=== PATIENT | female | born 1955 | race Caucasian/White ===

== ENCOUNTER 2022-03-06 19:40 | Emergency (ER) | payer OTHER, MEDICARE, SELFPAY ==
--- NOTE | ~2022-03-06 | CT_ITS ---
EXAMINATION: CT facial & cervical spine wo DATE: 03/06/2022 20:21 INDICATION: glf burising to the nose and upper jaw TECHNIQUE: Computed tomography (CT) of the maxillofacial region and cervical spine was performed with out intravenous contrast. Automated exposure control and iterative reconstruction technique were empl oyed. The dose-length product was 271.80 mGy-cm. COMPARISON: 07/11/2019. FINDINGS: CERVICAL: Counting reference: Craniocervical junction. There are seven cervical type vertebral bodies.. Anatomic Variants: None.. Vertebral Body Alignment: Intact. Craniocervical junction: Moderate degenerative change. Alignment intact. Osseous structures/fracture: No evidence of a lytic or blastic process in the visualized spine. N o evidence of acute fracture. Cervical soft tissues: The paraspinal soft tissues planes are maintained. Right thyroid gland enla rgement. Coarse right thyroid calcifications. Degenerative changes: Multilevel degenerative disc and facet change, with multilevel severe neural fo raminal narrowing. FACE: Soft Tissues: No significant superficial soft tissue swelling. Facial bones: No acute fracture. No lytic or blastic process. Eyes: The globes are intact. The soft tissue planes of the orbits are maintained. Paranasal Sinuses: The visualized aerated spaces are clear. Foreign Bodies: No radiopaque foreign bodies. Other Findings: Periodontal disease. IMPRESSION: No acute fracture or traumatic malalignment in the cervical spine. No acute facial bone fracture. Enl arged, calcified right thyroid gland, recommend nonemergent outpatient thyroid ultrasound for further evaluation. Reviewed, dictated and finalized at location K. IMPRESSION: No acute fracture or traumatic malalignment in the cervical spine. No acute fac ial bone fracture. Enlarged, calcified right thyroid gland, recommend nonemerge nt outpatient thyroid ultrasound for further evaluation.
--- NOTE | ~2022-03-06 | CT_ITS ---
EXAMINATION: CT brain wo con DATE: 03/06/2022 20:21 INDICATION: glf TECHNIQUE: Computed tomography (CT) of the head was performed without intravenous contrast. The mA wa s adjusted according to patient size. Iterative reconstruction technique was employed. The dose-lengt h product was 605.33 mGy-cm. COMPARISON: None FINDINGS: No acute intracranial hemorrhage or extra-axial fluid collection. No hydrocephalus, mass, or herniation. No acute ischemic infarct. Unremarkable dural venous sinus attenuation. No acute osseous abnormality. The aerated spaces are clear. Mild atrophy. Severe chronic white matter change. Old lacunar infarcts. Atherosclerotic intracranial calcifications. Bilateral lens replacements. IMPRESSION: No acute intracranial process. Reviewed, dictated and finalized at location K.
--- NOTE | ~2022-03-06 | XR_ITS ---
EXAM: XR hip RT 2V w AP pelvis HISTORY: glf tonight diffuse postior R hip pain COMPARISON: None available FINDINGS: Decreased mineralization. No fracture or dislocation. No lytic or blastic lesion. Mild herminio ateral hip osteoarthritis. No erosion or periosteal change. Soft tissues within normal limits. IMPRESSION: No acute osseous finding in the pelvis or right hip. Reviewed, dictated and finalized at location K.
--- NOTE | ~2022-03-06 | XR_ITS ---
EXAM: XR hand LT 2V HISTORY: glf bruising to thenar eminence BRUSING TO FAT PAD 1STDIGIT COMPARISON: None available FINDINGS: Decreased mineralization. No fracture or dislocation. No lytic or blastic lesion. Scattere d mild degenerative changes. No erosion or periosteal change. Soft tissues within normal limits. IMPRESSION: No acute osseous finding in the left hand. Reviewed, dictated and finalized at location K.
--- NOTE | ~2022-03-06 | XR_ITS ---
EXAM: XR shoulder LT min 2V HISTORY: glf diffuse shoulder pain, generalized pain throughout COMPARISON: None available FINDINGS: Decreased mineralization. No fracture or dislocation. No lytic or blastic lesion. Mild deg enerative changes in the AC and GH joints. No erosion or periosteal change. Soft tissues within dunia l limits. IMPRESSION: No acute osseous finding in the left shoulder. Reviewed, dictated and finalized at location K.
[2022-03-06 19:49] VITALS: BP 136/63; PULSE 72; RESP 16; TEMP 36.2; O2SAT 100
--- NOTE | 2022-03-06 20:09 | PC.NURSE ---
pt to imaging via stretcher
--- NOTE | 2022-03-06 21:11 | ED.FALL ---
HPI - Fall General Chief Complaint: Fall Stated Complaint: fall with head injury Time Seen by Provider: 03/06/22 19:44 Source: patient History of Present Illness HPI Narrative: Patient presents after ground-level fall. She reports she was at work tripped over a dumbbell and fell onto concrete. She denies any loss of consciousness she went to an urgent care she said her left eye was a little blurry and was referred to the ER for evaluation. Reports her vision has returned to normal. Reports a headache left shoulder pain left hand pain and right hip pain. She denies any focal numbness or weakness denies use of any blood thinners. She denies any nausea or vomiting Related Data Allergies Allergy/AdvReac Type Severity Reaction Status Date / Time No Known Allergies Allergy Verified 03/06/22 19:51 Review of Systems Review of Systems: CONSTITUTIONAL: Denies fever, chills, or sweats. EYES: Denies visual changes, redness, or discharge. ENT: Denies rhinorrhea, congestion, sore throat, or otalgia. CARDIOVASCULAR: Denies chest pain, palpitations, or edema. RESPIRATORY: Denies cough or dyspnea. GASTROINTESTINAL: Denies abdominal pain, nausea, vomiting, or diarrhea. GENITOURINARY: Denies dysuria or hematuria. SKIN: Denies rash or itching. MUSCULOSKELETAL: Denies back pain, joint pain, or myalgia. NEUROLOGIC: Denies numbness, dizziness, or weakness. PSYCHIATRIC: Denies anxiety or depression. All systems reviewed & are unremarkable except as noted in HPI and below PMFSH Past Medical History Medical History (Updated 03/06/22 @ 21:15 by Hieu Griggs MD) Back pain Exam Narrative: GENERAL: Well-appearing, well-nourished, and in no acute distress. HEAD: Normocephalic, hematoma and superficial abrasion on the left forehead EYES: PERRLA and EOMI. ENT: Nares clear, no rhinorrhea or epistaxis. Mucous membranes moist. Edema and superficial laceration noted to the left upper lip no dental fracture NECK: Supple. No masses. No JVD CHEST: Clear to auscultation. No respiratory distress. No wheezes rales or rhonchi HEART: Regular rate and rhythm. No murmur heard. Normal peripheral pulses. ABDOMEN: Soft, nontender, nondistended, normal active bowel sounds. EXTREMITIES: Normal range of motion. Diffuse tenderness to the left shoulder as well as the left hyperthenar eminence with overlying ecchymosis. There is diffuse tenderness to the right hip SKIN: Warm, dry, no rash. NEURO: Cranial nerves II through XII are intact patient is 5 out of 5 strength in all extremities sensation intact to light touch in all extremities alert and oriented x3. PSYCH: Normal mood and affect. Course Reevaluation(s) Reevaluation #1: Patient is resting comfortably results and plan reviewed with patient. Patient is comfortable outpatient plan. Date: 03/06/22 Time: 21:14 Vital Signs Vital signs: Vital Signs Temperature 36.2 C L 03/06/22 19:49 Pulse Rate 72 03/06/22 19:49 Respiratory Rate 16 03/06/22 19:49 Blood Pressure 136/63 03/06/22 19:49 Pulse Oximetry 100 03/06/22 19:49 Temperature 36.2 C L 03/06/22 19:49 Pulse Rate 75 03/06/22 21:20 Respiratory Rate 22 H 03/06/22 21:20 Blood Pressure 146/74 H 03/06/22 21:20 Pulse Oximetry 95 03/06/22 21:20 MDM - Fall MDM Narrative Medical decision making narrative: H&P as above, vss, pt looks clinically well, exam without focal neurological deficits, imaging without acute process, additional labs/img considered, symptomatic relief available as needed, on reevaluation pt continues to looks clinically well. Suspect mechanical event with multiple soft tissue injury, dns intracranial hemorrhage, cord compromise, fracture, major neurovascular compromise, ACS, PE. plan to tx/monitor as op w/ pcm f/u findings/plan discussed with pt, pt agree/comfortable with plan, return precautions given Imaging Data Radiologist's impression: Impressions Head CT 03/06/22 20:25 IMPRESSION: No acute in
[2022-03-06 21:20] VITALS: BP 146/74; PULSE 75; RESP 22; O2SAT 95
== END 2022-03-06 21:20 | disposition home or self-care (01) ==
PROVIDERS: Emergency Provider Emergency Medicine
DX: S00.83XA Contusion of other part of head, initial encounter (principal); S60.222A Contusion of left hand, initial encounter; S00.81XA Abrasion of other part of head, initial encounter; S09.90XA Unspecified injury of head, initial encounter; S01.511A Laceration without foreign body of lip, initial encounter; S49.92XA Unspecified injury of left shoulder and upper arm, initial encounter; S79.911A Unspecified injury of right hip, initial encounter; W18.09XA Striking against other object with subsequent fall, initial encounter
CPT/HCPCS: 70450; 70486; 72125; 73030; 73120; 73502; 99284